=== PATIENT | male | born 1995 | race Caucasian/White ===

== ENCOUNTER 2023-05-31 17:00 | Day surgery (SDC) | payer MEDICARE, MEDICAID, OTHER ==
[2023-05-31] VITALS (10 sets, daily range): BP systolic 128–163; BP diastolic 75–106; PULSE 72–92; RESP 16–18; O2SAT 89–98
[~2023-05-31 17:00] MED LIST: ATEN25TA PO; CINA30TA2 PO; CLON0.3T PO; GABA-530 PO; LACT1CAP65 PO; LIDO1ADH41 TOP; LIDOCAINE 4% (40MG/ML) topical solution 50ml **BRONCH ONLY ONE; MIDAZolam 5mg/ml 2ml vial IV ONE; MINO2.5T19 PO; NAFC2FRO IV; PANT40SU2 PO; PRED5TAB PO; SENN-362 PO; SEVE800T8 PO; SUCR500T PO; fentaNYL/PF 50MCG/1 ML 2ML syringe IV ONE; lidocaine 2% viscous 15 ML cup ***bronch room only MM ONE
[2023-05-31] MEDS ORDERED: MIDAZolam 5mg/ml 2ml vial ONE (17:07)
[2023-05-31] MEDS ORDERED: fentaNYL/PF 50MCG/1 ML 2ML syringe ONE (17:08)
[2023-06-07] MEDS ORDERED: CYCL-1 PO (08:50)
[2023-06-07] MEDS ORDERED: EMOL250L2 TOP (08:50)
[2023-06-07] MEDS ORDERED: BENCRM TOP (08:50)
[2023-06-07] MEDS ORDERED: ACET-2119 PO (08:50)
[2023-06-07] MEDS ORDERED: DIPH25CA83 PO (08:50)
[2023-06-07] MEDS ORDERED: HYDR-3972 PO (08:54)
== END 2023-05-31 23:59 | disposition home or self-care (01) ==
LOC: MERGE 17:00 → GI LAB 17:00
PROVIDERS: ATTEND Internal Medicine Critical Care Medicine
DX: R59.0 Localized enlarged lymph nodes (principal); Z53.8 Procedure and treatment not carried out for other reasons; I12.0 Hypertensive chronic kidney disease with stage 5 chronic kidney disease or end stage renal disease; N18.6 End stage renal disease; F32.A Depression, unspecified; F12.90 Cannabis use, unspecified, uncomplicated; Z79.01 Long term (current) use of anticoagulants; Z79.891 Long term (current) use of opiate analgesic; Z79.899 Other long term (current) drug therapy; Z94.0 Kidney transplant status; Z98.890 Other specified postprocedural states; Z88.1 Allergy status to other antibiotic agents
CPT/HCPCS: 94760; C1729; J2250; J3010; 31645; A4421; A6258

== ENCOUNTER → 2023-06-28 | Outpatient (CLI) | payer MEDICARE, MEDICAID, OTHER ==
[~2023-06-28] MED LIST changes: +ACET-2119 PO; +BENCRM TOP; +CYCL-1 PO; +DIPH25CA83 PO; +EMOL250L2 TOP; -GABA-530 PO; +HYDR-3972 PO; -LIDOCAINE 4% (40MG/ML) topical solution 50ml **BRONCH ONLY ONE; -MIDAZolam 5mg/ml 2ml vial IV ONE; -fentaNYL/PF 50MCG/1 ML 2ML syringe IV ONE; -lidocaine 2% viscous 15 ML cup ***bronch room only MM ONE
== END | disposition home or self-care (01) ==
LOC: RAD 10:13 → MERGE 10:13
PROVIDERS: ATTEND Internal Medicine
DX: M48.07 Spinal stenosis, lumbosacral region (principal); M47.816 Spondylosis without myelopathy or radiculopathy, lumbar region; R16.2 Hepatomegaly with splenomegaly, not elsewhere classified; M46.24 Osteomyelitis of vertebra, thoracic region; R60.9 Edema, unspecified; M43.8X4 Other specified deforming dorsopathies, thoracic region; Z87.311 Personal history of (healed) other pathological fracture
CPT/HCPCS: 72148